=== PATIENT | female | born 1970 | race Caucasian/White ===

== ENCOUNTER → 2020-09-02 | Outpatient (CLI) | payer BC ==
[~2020-09-02] MED LIST: ALBU2.5V8 IH; BECL10.62 IH; CRESTOR5 MG PO; LEVO88TA4 PO
== END ==
LOC: LAB 09:14
PROVIDERS: ATTEND Internal Medicine Gastroenterology
DX: Z01.812 Encounter for preprocedural laboratory examination (principal); Z20.828 Contact with and (suspected) exposure to other viral communicable diseases; Z12.11 Encounter for screening for malignant neoplasm of colon
CPT/HCPCS: U0003

== ENCOUNTER → 2020-09-04 | Day surgery (SDC) | payer BC ==
[~2020-09-04] MED LIST changes: +HYDROmorphone 2 MG/ML VIAL IV PRN; +MORPHINE SULFATE 2 MG/ML VIAL. IV PRN; +ONDANSETRON PF 4 MG/2 ML VIAL. IV PRN; +PROCHLORPERAZINE 10 MG/2 ML VIAL. IV PRN; +PROPOFOL 10 MG/ML (20ML) VIAL. IV ONE; +fentaNYL PF VIAL 100 MCG/2 ML VIAL IV PRN
[2020-09-04] MEDS: IV RINGERS,LACTATED 1000ML 1,000 ML IV SCH ×2 (06:32→06:33)
[2020-09-04 08:01] VITALS: BP 142/89
--- NOTE | 2020-09-04 08:28 | CONS ---
DATE OF CONSULTATION: 09/04/2020 GASTROINTESTINAL CONSULTATION REFERRING PHYSICIAN: Kaity López REASON FOR CONSULTATION: Colorectal screening. HISTORY OF PRESENT ILLNESS: This is a 50-year-old female with past medical history significant for hyperlipidemia, hypothyroidism, is seen for screening colon exam. Bowel habits are regular without diarrhea or constipation. There has been no melena and/or hematochezia. Family history is unrevealing for colon polyps or colon cancer. She is otherwise without additional complaints. PAST MEDICAL HISTORY: Hypothyroidism, hyperlipidemia. ALLERGIES: IODINE, DOXYCYCLINE, CLARITHROMYCIN. MEDICATIONS: Include albuterol, QVAR inhaler, levothyroxine, and Crestor. FAMILY AND SOCIAL HISTORY: Former smoker, nondrinker. Family history is significant for colon polyps with her sister, diabetes with grandmother as well as hypertension with grandmother and heart attack with her mom. PAST SURGICAL HISTORY: Significant only for wisdom teeth extraction. REVIEW OF SYSTEMS: HEENT: There is no decreased hearing or visual acuity. CARDIAC: There is no history of hypertension, palpitations, syncope. PULMONARY: History of cough, asthma or COPD. ENDOCRINE: There is a history of hypothyroidism, hyperlipidemia. HEMATOLOGIC: No bleeding, bruising, coagulopathy. NEUROLOGIC: No stroke, migraine, neuropathy. PSYCHIATRIC: Mood swings, depression, insomnia. GASTROINTESTINAL: See history of present illness. DERMATOLOGIC: No skin rashes or pruritus. RENAL: No dysuria, frequency, hematuria. PHYSICAL EXAMINATION: GENERAL: Reveals a well-nourished, well-developed female who is alert, cooperative, in no acute distress. VITAL SIGNS: Temperature 97, pulse 107, respiratory rate 20. LUNGS: Clear. CARDIOVASCULAR: Reveals an S1, S2 without S3, S4 or appreciable murmur. ABDOMEN: Reveals a soft abdomen, normal bowel sounds, without appreciable hepatosplenomegaly. EXTREMITIES: No cyanosis, clubbing or edema. IMPRESSION: Colorectal screening is warranted at this time. Risks and benefits of procedure including risk of hemorrhage and perforation during the operation have been discussed. The patient is willing to proceed. I thank Dr. Garduno for allowing us to consult and participate in the patient's care. MARI GARCIA MD DR: YOLY/mary JOB#: [id number] / [id number] Kaity Quezada
--- NOTE | 2020-09-09 15:08 | PATHOLOGY ---
[facility] Accession Number: [id number] . 01 Material submitted: . PART A: colon - SIGMOID COLON POLYP BIOPSY. Modifiers: sigmoid PART B: cecum - CECUM POLYP . 01 Clinical history: . SCREENING . 02 Diagnosis: A. Colon biopsies, sigmoid colon polyp: - Tubular adenoma. . B. Colon biopsies, cecal polyp: - Tubulovillous adenoma, predominantly tubular. (JPM:[facility] 09/09/2020) [facility] 09/09/2020 1234 Local . 02 Comment: There is no high-grade dysplasia or evidence of malignancy. (JP:[facility] 09/09/2020) . 02 Electronically signed: . Ángel Jerez MD, Pathologist NPI- [id number] . 01 Gross description: . A. Received in formalin labeled "Jordyn, Drea, sigmoid colon polyp BX" are multiple rocha-brown soft tissue fragments measuring in aggregate 0.5 x 0.3 x 0.1 cm. The specimen is submitted entirely in A1. . B. Received in formalin labeled "Jordyn, Drea, cecum polyp" are multiple rocha-brown soft tissue fragments measuring in aggregate 1.4 x 0.7 x 0.3 cm. The specimen is submitted entirely in B1. ([facility] [place] 09/06/2020[place] [facility] 09/06/2020 1300 Local . 02 Pathologist provided ICD-10: D12.5, D12.0 . 02 CPT . 969429, [id number] Specimen Comment: A courtesy copy of this report has been sent to [phone] Specimen Comment: Report sent to Performed at: 01 [facility] [address] [place] [address] [address], [place] [id number] MD Lalo Lin MD Phone: [phone] Performed at: [address] [id number] MD Ángel Jerez MD Phone: [phone]
== END | disposition home or self-care (01) ==
LOC: SURG 06:06
PROVIDERS: ATTEND Internal Medicine Gastroenterology
DX: Z12.11 Encounter for screening for malignant neoplasm of colon (principal); K64.0 First degree hemorrhoids; K57.30 Diverticulosis of large intestine without perforation or abscess without bleeding; D12.0 Benign neoplasm of cecum; D12.5 Benign neoplasm of sigmoid colon; E03.9 Hypothyroidism, unspecified; E78.00 Pure hypercholesterolemia, unspecified; K63.89 Other specified diseases of intestine; K21.9 Gastro-esophageal reflux disease without esophagitis; J45.909 Unspecified asthma, uncomplicated; Z87.891 Personal history of nicotine dependence; Z79.899 Other long term (current) drug therapy; Z79.82 Long term (current) use of aspirin; Z98.890 Other specified postprocedural states; Z91.041 Radiographic dye allergy status; Z88.1 Allergy status to other antibiotic agents
CPT/HCPCS: 45380; 45385; 88305; J2704; 45384